=== PATIENT | female | born 1975 | race Caucasian/White ===

== ENCOUNTER 2021-07-17 14:58 | Emergency (ER) | payer OTHER ==
[~2021-07-17] VITALS: Ht 165.1 cm; Wt 90.7 kg
--- NOTE | 2021-07-17 15:17 | NUR ---
PT CAME TO ER C/O SOB AND SORE THROAT X 3 DAYS. REPORTS COVID TEST WAS NEGATIVE YESTERDAY. ADMITS BEING IN CLOSE CONTACT WITH A COVID + PERSON ON 07/12. ADMITS LOSS OF SENSE OF SMELL. AAOX4, SPEAKS CLEARLY AND IN FULL SENTENCES. SLIGHT WHEEZING ON AUSCULTATION.
--- NOTE | 2021-07-17 15:24 | NUR ---
TEMP 100.0 DEGRESS, PULSE OX 99% ON ROOM AIR
--- NOTE | 2021-07-17 15:28 | NUR ---
COVID ANTIGEN SWAB DONE AND SENT TO THE LAB
--- NOTE | 2021-07-17 15:42 | NUR ---
RAPID INFLUENZA RAPID SWAB DONE AND SENT TO THE LAB
--- NOTE | 2021-07-17 15:55 | NUR ---
X RAY AT BEDSIDE
--- NOTE | 2021-07-17 15:55 | NUR ---
RADIOLOGY AT BEDSIDE
--- NOTE | 2021-07-17 16:25 | NUR ---
Patient discharged to home in stable condition. Written and verbal after care instructions given. Patient verbalizes understanding of instruction.
[2021-07-17 16:26] VITALS: BP 116/61
--- NOTE | 2021-07-18 00:24 | NUR ---
COVID ANTIGEN RESULT IS POSITIVE. NOTIFIED PT. RAGHAV RICKS NOTIFIED
== END 2021-07-17 16:24 | disposition home or self-care (01) ==
LOC: ER 15:14
DX: U07.1 COVID-19 (principal)
CPT/HCPCS: 71045; 87426; 87804; 93005; 99285; C9803